=== PATIENT | female | born 1935 | race Hispanic/Latino ===

== ENCOUNTER → 2016-11-25 | Outpatient (CLI) | payer MEDICARE, MEDICAID ==
[2016-11-25 08:05] LABS: MEAN PLATELET VOLUME 9.3 FL (7.4-10.4); RED BLOOD COUNT 4.69 10^6/uL (4.35-5.85); RED CELL DISTRIBUTION WIDTH 14.9 % (10.0-14.5); WHITE BLOOD COUNT 5.5 10^3/uL (4.3-11.0)
[2016-11-25 08:24] LABS: ANION GAP 7 MMOL/L (5-14); BLOOD UREA NITROGEN 12 MG/DL (7-18); BUN/CREATININE RATIO 16; CALCIUM 8.9 MG/DL (8.5-10.1); CARBON DIOXIDE 27 MMOL/L (21-32); CHLORIDE 110 MMOL/L (98-107); CREATININE SERUM 0.75 MG/DL (0.60-1.30); GFR ESTIMATED > 60; GLUCOSE 95 MG/DL (70-105); POTASSIUM 3.5 MMOL/L (3.6-5.0); SODIUM 144 MMOL/L (135-145)
== END ==
LOC: LAB 07:48
PROVIDERS: ATTEND Nurse Practitioner Family
DX: R10.84 Generalized abdominal pain (principal)
CPT/HCPCS: 36415; 80048; 85027

== ENCOUNTER → 2018-07-13 | Outpatient (CLI) | payer MEDICARE, MEDICAID ==
--- NOTE | 2018-07-13 15:16 | Diagnostic Imaging Report ---
CLINICAL INDICATION: Patient is status post fall about three months ago and low back pain and pain down left leg. No history of surgery. EXAM: MRI of the lumbar spine performed without IV contrast. Sequences include sagittal T2, sagittal T1, sagittal T2 fat-sat, axial T2, and axial T1. COMPARISON: X-ray of the lumbar spine dated 09/28/2006. FINDINGS: There is no acute lumbar spine fracture. There is a stable roughly 60% anterior wedge compression fracture deformity of the L1 vertebra which is chronic. There is minimal posterior retropulsion of the superior posterior aspect of the vertebra which contributes to mild central canal narrowing. There is Modic type I degenerative signal changes involving the L3-L4 and L5-S1 endplates. There is no significant paraspinal soft tissue abnormality. There is a small sized left kidney seen. There are multiple left renal cysts with largest measuring 12 mm. The visualized portions of the distal thoracic spinal cord, conus medullaris, and cauda equina nerve roots are unremarkable. The conus medullaris tip is seen at the mid L1 vertebral body level. There is facet arthropathy involving the visualized lower thoracic spine. There is ligamentum flavum buckling and a small posterior disc bulge at the T11-T12 levels which causes mild central canal narrowing and mild bilateral neural foramen narrowing. T12-L1: There is mild bilateral facet arthropathy and small posterior disc spurs with mild central canal narrowing. There is no significant neural foramen narrowing. L1-L2: There is a diffuse disc bulge with superimposed left paracentral disc osteophyte component. There are mildly hypertrophic disc spurs extending posteriorly and into the foraminal regions bilaterally. There is mild bilateral facet arthropathy. There is diwm-ap-jehaklwv central canal narrowing, aezf-fe-lsosewlp right neural foramen narrowing and no significant left neural foramen narrowing. L2-L3: There is a diffuse disc bulge with rncm-zb-fwrgefbw bilateral facet arthropathy. There is cdmu-gr-lkzrrumy central canal narrowing and mild bilateral neural foramen narrowing. L3-L4: There is moderate bilateral facet arthropathy ligament flavum buckling. There is a mild diffuse disc bulge. There is a chronic Schmorl's node involving the upper endplate. There is dpwb-li-qdptcgkq bilateral neural foramen narrowing and mild facet arthropathy. L4-L5: There is diffuse disc bulge with moderate bilateral facet arthropathy and ligamentum flavum buckling. There is moderate central canal narrowing, uthwazfv-et-phnptx left neural foramen narrowing and moderate right neural foramen narrowing. L5-S1: There is a diffuse disc bulge with jikexcre-tt-dqvhwk loss of intervertebral disc height with superimposed bqwlq-oi-inosoyop anterior disc extrusion/herniation. There is xzha-by-xxufxeej bilateral facet arthropathy. There is moderate left neural foramen narrowing and mild right neural foramen narrowing. There is no significant central canal narrowing. IMPRESSION: 1: There is no acute lumbar spine fracture or dislocation. 2: Stable L1 vertebral body anterior wedge compression fracture deformity. 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 Dictated by: Dictated on workstation # [id number]
== END ==
LOC: RAD 14:00
PROVIDERS: ATTEND Nurse Practitioner Family
DX: S32.010A Wedge compression fracture of first lumbar vertebra, initial encounter for closed fracture (principal); M46.87 Other specified inflammatory spondylopathies, lumbosacral region; M51.46 Schmorl's nodes, lumbar region; M25.78 Osteophyte, vertebrae; M48.07 Spinal stenosis, lumbosacral region; N28.1 Cyst of kidney, acquired; M51.17 Intervertebral disc disorders with radiculopathy, lumbosacral region; M47.27 Other spondylosis with radiculopathy, lumbosacral region; I10 Essential (primary) hypertension; R60.9 Edema, unspecified; Z91.81 History of falling
CPT/HCPCS: 72148